=== PATIENT | female | born 1960 | race African-American/Black ===

== ENCOUNTER 2018-06-29 14:50 | Inpatient (IN) | payer MEDICARE, MEDICAID ==
[~2018-06-29] VITALS: Ht 182.9 cm; Wt 126.6 kg
[~2018-06-29 14:50] MED LIST: HYDR25TA PO; LEVO500T2 PO; LISI10TA5 PO; LURA40TA PO; METF-416 PO
[2018-06-29] MEDS ORDERED: SODIUM CHLORIDE 0.9% 1,000 ML IV ONE (15:20)
[2018-06-29] MEDS ORDERED: INSULIN REGULAR (HUMULIN R) UD 100 UNITS/ML SYR SUBCUT ONE (15:30)
[2018-06-29 15:56] LABS: BASOPHILS % 1.4 % (0.0-2.0); EOSINOPHILS % 0.7 % (0.0-5.0); HEMATOCRIT. 43.6 % (36.0-48.0); HEMOGLOBIN. 13.8 g/dL (12.0-16.0); LYMPHOCYTES % 25.1 % (20.0-50.0); MEAN CORPUSCULAR VOLUME 88.5 fL (81.0-99.0); MEAN PLATELET VOLUME 9.4 fl (7.4-10.4); MONOCYTES % 12.2 % (2.0-8.0); NEUTROPHILS % 60.6 % (40.0-76.0); PLATELET 302 x1000/uL (130-400); RED BLOOD CELL COUNT 4.92 mill/uL (4.2-5.4); RED CELL DISTRIBUTION WIDTH 16.1 % (11.6-14.6)
[2018-06-29 16:05] LABS: CHLORIDE 96 mEq/L (98-107)
[2018-06-29 16:10] LABS: CLARITY URINE CLEAR (CLEAR); COLOR URINE YELLOW (YELLOW); KETONES URINE NEGATIVE (NEGATIVE); LEUKOCYTE ESTERASE URINE NEGATIVE (NEGATIVE); NITRITE URINE NEGATIVE (NEGATIVE); OCCULT BLOOD URINE NEGATIVE (NEGATIVE); PH URINE 5.5 (4.5-8.0); PROTEIN URINE NEGATIVE (NEGATIVE); SPECIFIC GRAVITY URINE 1.032 (1.005-1.030); UROBILINOGEN URINE 0.2 E.U./dL (0.2-1.0)
[2018-06-29 16:13] LABS: BETA HYDROXYBUTYRATE 0.1 mMol/L (0.0-0.3)
[2018-06-29] MEDS ORDERED: INSULIN REGULAR (HUMULIN R) 300UNITS/3ML SUBCUT ONE (16:30)
[2018-06-29] MEDS ORDERED: INSULIN REGULAR (HUMULIN R) UD 100 UNITS/ML SYR IV ONE (17:00)
[2018-06-29] MEDS ORDERED: INSULIN REGULAR (HUMULIN R) 300UNITS/3ML IV SCH ×2 (17:45→18:30)
[2018-06-29] MEDS ORDERED: ONDANSETRON HCL 4MG/2ML INJ IV PRN (18:45)
[2018-06-29] MEDS ORDERED: DIPHENHYDRAMINE 50MG/ML VIAL IV PRN (18:45)
[2018-06-29] MEDS ORDERED: LORAZEPAM 2MG/ML CPJ IV PRN (18:45)
[2018-06-29] MEDS ORDERED: MAGNESIUM/ALUMINUM HYDROXIDE/SIMETHICONE 30ML UDC PO PRN (18:45)
[2018-06-29] MEDS ORDERED: NA PHOS,M-B/NA PHOS,DI-BA ENEMA 118ML PR PRN (18:45)
[2018-06-29] MEDS ORDERED: GUAIFENESIN 200MG/10ML SUGAR FREE UDC PO PRN (18:45)
[2018-06-29] MEDS ORDERED: ACETAMINOPHEN 325MG TABLET PO PRN (18:45)
[2018-06-29] MEDS ORDERED: CLONIDINE 0.1MG TABLET PO PRN (18:45)
[2018-06-29] MEDS ORDERED: DOCUSATE SODIUM 100MG CAPSULE PO PRN (18:45)
[2018-06-29] MEDS ORDERED: IPRATROPIUM/ALBUTEROL 0.5-3(2.5)MG/3ML NEB INH PRN (18:45)
[2018-06-29] MEDS: HYDROCODONE/ACETAMINOPHEN 5/325MG TABLET PO PRN (19:02)
[2018-06-29 21:40] VITALS: BP 130/77
[2018-06-29 22:00] VITALS: BP 130/77
[2018-06-29] MEDS ORDERED: MORPHINE SULFATE 4 MG/ML CPJ (NOT FOR IM USE) IV PRN (22:01)
[2018-06-29] MEDS ORDERED: DEXTROSE 50% WATER 50ML SYRINGE IV PRN (22:02)
[2018-06-29] MEDS: BLOOD SUGAR DIAGNOSTIC STRIP TEST SCH (22:19)
[2018-06-29] MEDS: SODIUM CHLORIDE 0.45% 1,000 ML IV SCH (22:20)
[2018-06-29] MEDS: INSULIN LISPRO 100 UNITS/ML SUBCUT SCH (22:21)
[2018-06-29 23:57] LABS: CHLORIDE 104 mEq/L (98-107)
[2018-06-30] VITALS (8 sets, daily range): BP systolic 114–173; BP diastolic 54–99
[2018-06-30] MEDS ORDERED: HYDR-4001 PO (02:14)
[2018-06-30] MEDS ORDERED: LORA-249 PO (02:14)
[2018-06-30] MEDS ORDERED: LANTUS SQ (02:14)
[2018-06-30] MEDS ORDERED: AMLO5TAB88 PO (02:14)
[2018-06-30] MEDS: HYDROCODONE/ACETAMINOPHEN 5/325MG TABLET PO PRN (04:25)
[2018-06-30] MEDS: SODIUM CHLORIDE 0.45% 1,000 ML IV SCH (05:37)
[2018-06-30] MEDS: BLOOD SUGAR DIAGNOSTIC STRIP TEST SCH ×2 (06:38→12:26)
[2018-06-30 06:53] LABS: BASOPHILS % 0.8 % (0.0-2.0); HEMATOCRIT. 36.8 % (36.0-48.0); LYMPHOCYTES % 37.7 % (20.0-50.0); MEAN CORPUSCULAR HEMOGLOBIN 28.1 pg (28.0-32.0); MEAN CORPUSCULAR VOLUME 86.4 fL (81.0-99.0); MEAN PLATELET VOLUME 7.9 fl (7.4-10.4); MONOCYTES % 12.4 % (2.0-8.0); NEUTROPHILS % 46.1 % (40.0-76.0); PLATELET 278 x1000/uL (130-400); RED BLOOD CELL COUNT 4.26 mill/uL (4.2-5.4); RED CELL DISTRIBUTION WIDTH 15.5 % (11.6-14.6)
[2018-06-30 06:54] LABS: CHLORIDE 104 mEq/L (98-107)
[2018-06-30 07:05] LABS: LDL CHOLESTEROL 72 mg/dL (5-100)
[2018-06-30 07:06] LABS: HDL CHOLESTEROL 72 mg/dL (40-59); T4 FREE 1.19 ng/dL (0.76-1.46)
[2018-06-30] MEDS: INSULIN LISPRO 100 UNITS/ML SUBCUT SCH ×2 (07:30→12:29)
[2018-06-30] MEDS ORDERED: ASPIRIN 81MG EC TABLET PO SCH (09:00)
[2018-06-30] MEDS ORDERED: ENOXAPARIN 30MG/0.3ML SYR SUBCUT SCH (09:00)
== END 2018-06-30 13:05 | disposition home or self-care (01) | DRG 637 ==
LOC: ER 14:50 → 3WST 18:11 → ENRESERV 19:58
PROVIDERS: ADMIT Internal Medicine; ATTEND Internal Medicine
DX: E11.65 Type 2 diabetes mellitus with hyperglycemia (principal); E11.00 Type 2 diabetes mellitus with hyperosmolarity without nonketotic hyperglycemic-hyperosmolar coma (NKHHC); E86.0 Dehydration; M19.90 Unspecified osteoarthritis, unspecified site; I10 Essential (primary) hypertension; F17.200 Nicotine dependence, unspecified, uncomplicated; I25.10 Atherosclerotic heart disease of native coronary artery without angina pectoris; Z79.4 Long term (current) use of insulin; Z91.14 Patient's other noncompliance with medication regimen; Z79.84 Long term (current) use of oral hypoglycemic drugs; Z79.899 Other long term (current) drug therapy; Z79.2 Long term (current) use of antibiotics
CPT/HCPCS: 36415; 71045; 80048; 80061; 82010; 82962; 83036; 83930; 84439; 84443; 84484; 93005; 94640; 96361; 96372; 96374; 99291; J1650; J1815; J2060; J2270; J7030; J7620

== ENCOUNTER 2018-11-17 18:07 | Emergency (ER) | payer MEDICARE, MEDICAID ==
[~2018-11-17] VITALS: Ht 180.3 cm; Wt 100.0 kg
[~2018-11-17 18:07] MED LIST changes: +AMLO5TAB88 PO; +HYDR-4001 PO; +LANTUS SQ; +LORA-249 PO
[2018-11-17] MEDS ORDERED: ONDANSETRON 4MG ODT PO STA (21:53)
[2018-11-17] MEDS ORDERED: CEFTRIAXONE 1 G PREMIX 50 ML IV ONE (22:00)
[2018-11-17] MEDS ORDERED: SODIUM CHLORIDE 0.9% 1000ML BAG (SEPSIS BOLUS) IV ONE (22:00)
[2018-11-17 22:44] LABS: BASOPHILS % 1.3 % (0.0-2.0); EOSINOPHILS % 2.3 % (0.0-5.0); HEMATOCRIT. 40.7 % (36.0-48.0); HEMOGLOBIN. 13.9 g/dL (12.0-16.0); LYMPHOCYTES % 32.5 % (20.0-50.0); MEAN CORPUSCULAR HEMOGLOBIN 29.7 pg (28.0-32.0); MEAN CORPUSCULAR VOLUME 86.8 fL (81.0-99.0); MONOCYTES % 8.6 % (2.0-8.0); NEUTROPHILS % 55.3 % (40.0-76.0); PLATELET 316 x1000/uL (130-400); RED BLOOD CELL COUNT 4.69 mill/uL (4.2-5.4); RED CELL DISTRIBUTION WIDTH 14.6 % (11.6-14.6)
[2018-11-17 22:49] LABS: CHLORIDE 103 mEq/L (98-107)
[2018-11-17 22:51] LABS: INR 0.9; PROTHROMBIN TIME 9.8 sec (9.6-11.0)
[2018-11-17 22:54] LABS: CLARITY URINE CLEAR (CLEAR); COLOR URINE YELLOW (YELLOW); KETONES URINE NEGATIVE (NEGATIVE); LEUKOCYTE ESTERASE URINE NEGATIVE (NEGATIVE); NITRITE URINE NEGATIVE (NEGATIVE); OCCULT BLOOD URINE NEGATIVE (NEGATIVE); PH URINE 5.5 (4.5-8.0); PROTEIN URINE 1+ (NEGATIVE); SPECIFIC GRAVITY URINE 1.041 (1.005-1.030)
[2018-11-18] MEDS ORDERED: CLONIDINE 0.1MG TABLET PO SCH (02:15)
[2018-11-18 02:20] VITALS: BP 186/99
== END 2018-11-18 02:20 | disposition home or self-care (01) ==
LOC: ER 18:07 → CANBEDREQ 11-18 02:51
DX: R50.9 Fever, unspecified (principal); E86.0 Dehydration; I10 Essential (primary) hypertension; E11.9 Type 2 diabetes mellitus without complications; M19.90 Unspecified osteoarthritis, unspecified site; Z79.84 Long term (current) use of oral hypoglycemic drugs
CPT/HCPCS: 36415; 71045; 80053; 81003; 82962; 83605; 84145; 84484; 85025; 85610; 87040; 87086; 93005; 96365; 99284; J0696; J7030; Q0162

== ENCOUNTER 2018-12-31 11:19 | Emergency (ER) | payer MEDICARE, MEDICAID ==
[~2018-12-31] VITALS: Ht 182.9 cm; Wt 127.0 kg
[2018-12-31] MEDS ORDERED: MORPHINE SULFATE 4 MG/ML CPJ (NOT FOR IM USE) IV STA (12:45)
[2018-12-31] MEDS ORDERED: ONDANSETRON HCL 4MG/2ML INJ IV STA (12:45)
[2018-12-31] MEDS ORDERED: SODIUM CHLORIDE 0.9% 1,000 ML IV ONE (12:45)
[2018-12-31 14:02] LABS: BASOPHILS % 1.2 % (0.0-2.0); EOSINOPHILS % 1.5 % (0.0-5.0); HEMATOCRIT. 42.9 % (36.0-48.0); HEMOGLOBIN. 14.4 g/dL (12.0-16.0); LYMPHOCYTES % 33.3 % (20.0-50.0); MEAN CORPUSCULAR HEMOGLOBIN 28.7 pg (28.0-32.0); MEAN CORPUSCULAR VOLUME 85.7 fL (81.0-99.0); MEAN PLATELET VOLUME 8.5 fl (7.4-10.4); MONOCYTES % 7.6 % (2.0-8.0); NEUTROPHILS % 56.4 % (40.0-76.0); PLATELET 284 x1000/uL (130-400); RED BLOOD CELL COUNT 5.01 mill/uL (4.2-5.4); RED CELL DISTRIBUTION WIDTH 14.3 % (11.6-14.6)
[2018-12-31 14:04] LABS: CHLORIDE 100 mEq/L (98-107)
[2018-12-31 14:07] LABS: INR 0.9; PARTIAL THROMBOPLASTIN TIME 24.3 sec (23.4-31.0); PROTHROMBIN TIME 9.6 sec (9.6-11.0)
[2018-12-31 14:10] LABS: BETA HYDROXYBUTYRATE 0.3 mMol/L (0.0-0.3)
[2018-12-31] MEDS ORDERED: INSULIN REGULAR (HUMULIN R) 300UNITS/3ML IV ONE (14:45)
[2018-12-31 15:20] LABS: CLARITY URINE CLEAR (CLEAR); COLOR URINE YELLOW (YELLOW); KETONES URINE NEGATIVE (NEGATIVE); LEUKOCYTE ESTERASE URINE NEGATIVE (NEGATIVE); NITRITE URINE NEGATIVE (NEGATIVE); OCCULT BLOOD URINE NEGATIVE (NEGATIVE); PH URINE 5.5 (4.5-8.0); PROTEIN URINE NEGATIVE (NEGATIVE); SPECIFIC GRAVITY URINE 1.034 (1.005-1.030); UROBILINOGEN URINE 0.2 E.U./dL (0.2-1.0)
[2018-12-31 17:00] VITALS: BP 128/72
== END 2018-12-31 17:40 | disposition home or self-care (01) ==
LOC: ER 11:19
DX: R51 Headache (principal); R42 Dizziness and giddiness; R53.1 Weakness; E11.9 Type 2 diabetes mellitus without complications; I10 Essential (primary) hypertension; Z79.899 Other long term (current) drug therapy
CPT/HCPCS: 36415; 70450; 71045; 80053; 81003; 82010; 83690; 83880; 84484; 85025; 85610; 85730; 93005; 96361; 96374; 96375; 99284; J1815; J2270; J2405; J7030

== ENCOUNTER → 2022-09-02 | Outpatient (CLI) | payer MEDICARE, MEDICAID ==
[~2022-09-02] MED LIST changes: +ALBU6.7H15 INH; +BARIUM SULFATE 176 GM SUSP.RECON ONE; +CEPH500T MT; +EZ-HD SUSPENSION(BARIUM SULFATE 340GM) PO ONE; +FLUO20CA33 PO; +FLUT1DIS2 INH; +GABA-532 PO; -HYDR-4001 PO; -HYDR25TA PO; +INSU100C6 SQ; -LEVO500T2 PO; +LIDO700A30 TOP; -LISI10TA5 PO; -LORA-249 PO; -LURA40TA PO; +METF-414 PO; -METF-416 PO; +QUET400T PO; +RIVA20TA PO; +SULF1TAB48 MT; +TRAM50TA3 PO
== END | disposition home or self-care (01) ==
LOC: RAD 08:36
PROVIDERS: ATTEND Internal Medicine Gastroenterology
DX: K22.89 Other specified disease of esophagus (principal); R13.10 Dysphagia, unspecified
CPT/HCPCS: 74220

== ENCOUNTER 2022-12-23 15:16 | Inpatient (IN) | payer MEDICARE, MEDICAID ==
[~2022-12-23] VITALS: Ht 182.9 cm; Wt 129.3 kg
[~2022-12-23 15:16] MED LIST changes: -BARIUM SULFATE 176 GM SUSP.RECON ONE; -EZ-HD SUSPENSION(BARIUM SULFATE 340GM) PO ONE
[2022-12-23 18:16] LABS: BASOPHILS % 0.8 % (0.0-2.0); EOSINOPHILS % 1.8 % (0.0-5.0); HEMATOCRIT. 39.1 % (36.0-48.0); HEMOGLOBIN. 12.9 g/dL (12.0-16.0); LYMPHOCYTES % 41.3 % (20.0-50.0); MEAN CORPUSCULAR VOLUME 87.6 fL (81.0-99.0); MONOCYTES % 8.7 % (2.0-8.0); NEUTROPHILS % 47.4 % (40.0-76.0); PLATELET 302 x1000/uL (130-400); RED BLOOD CELL COUNT 4.46 mill/uL (4.2-5.4); RED CELL DISTRIBUTION WIDTH 14.7 % (11.6-14.6)
[2022-12-23 18:21] LABS: CLARITY URINE CLEAR (CLEAR); COLOR URINE YELLOW (YELLOW); KETONES URINE NEGATIVE (NEGATIVE); LEUKOCYTE ESTERASE URINE NEGATIVE (NEGATIVE); NITRITE URINE NEGATIVE (NEGATIVE); OCCULT BLOOD URINE NEGATIVE (NEGATIVE); PH URINE 5.5 (4.5-8.0); PROTEIN URINE 1+ (NEGATIVE); SPECIFIC GRAVITY URINE 1.028 (1.005-1.030); UROBILINOGEN URINE 0.2 E.U./dL (0.2-1.0)
[2022-12-23 18:25] LABS: CHLORIDE 102 mEq/L (98-107)
[2022-12-23 18:39] LABS: BETA HYDROXYBUTYRATE 0.1 mMol/L (0.0-0.3)
[2022-12-23] MEDS: SODIUM CHLORIDE 0.9% 1,000 ML IV ONE (22:07)
[2022-12-23] MEDS ORDERED: INSULIN REGULAR (HUMULIN R) 300UNITS/3ML VIAL IV ONE (22:30)
[2022-12-24] MEDS ORDERED: INSULIN REGULAR (HUMULIN R) 300UNITS/3ML VIAL IV NR (00:30)
[2022-12-24] MEDS: SODIUM CHLORIDE 0.9% 1,000 ML IV ONE (00:31)
[2022-12-24 02:30] VITALS: BP 152/77; PULSE 108; RESP 18; TEMP 98.1
[2022-12-24] MEDS ORDERED: QUET200T30 PO (03:22)
[2022-12-24] MEDS ORDERED: LOSARTAN PO (03:23)
[2022-12-24 04:00] VITALS: BP 150/81; PULSE 92; RESP 20; TEMP 98.1
[2022-12-24] MEDS ORDERED: DIPHENOXYLATE/ATROPINE 2.5/0.025MG TABLET PO PRN (04:15)
[2022-12-24] MEDS ORDERED: DEXTROSE 50% WATER 50ML SYRINGE IV PRN (04:15)
[2022-12-24 05:40] LABS: BASOPHILS % 0.6 % (0.0-2.0); EOSINOPHILS % 2.7 % (0.0-5.0); HEMATOCRIT. 39.2 % (36.0-48.0); HEMOGLOBIN. 12.8 g/dL (12.0-16.0); LYMPHOCYTES % 40.7 % (20.0-50.0); MEAN CORPUSCULAR HEMOGLOBIN 28.6 pg (28.0-32.0); MEAN CORPUSCULAR VOLUME 87.8 fL (81.0-99.0); MONOCYTES % 9.1 % (2.0-8.0); NEUTROPHILS % 46.9 % (40.0-76.0); PLATELET 296 x1000/uL (130-400); RED BLOOD CELL COUNT 4.46 mill/uL (4.2-5.4); RED CELL DISTRIBUTION WIDTH 14.6 % (11.6-14.6)
[2022-12-24] MEDS: ENOXAPARIN 30MG/0.3ML SYR SUBCUT SCH ×2 (05:55→17:12)
[2022-12-24] MEDS ORDERED: INSULIN LISPRO 100 UNITS/ML SUBCUT NR (06:00)
[2022-12-24] MEDS: INSULIN LISPRO 100 UNITS/ML SUBCUT SCH ×5 (06:29→21:24)
[2022-12-24] MEDS: BLOOD SUGAR DIAGNOSTIC STRIP TEST SCH ×4 (06:29→21:22)
[2022-12-24] MEDS: HYDROCODONE/ACETAMINOPHEN 5/325MG TABLET PO PRN ×2 (06:34→15:23)
[2022-12-24 07:48] LABS: CHLORIDE 104 mEq/L (98-107)
[2022-12-24 08:00] VITALS: BP 136/86; PULSE 104; RESP 18; TEMP 97.7
[2022-12-24 08:06] LABS: HDL CHOLESTEROL 93 mg/dL (40-59); LDL CHOLESTEROL 91 mg/dL (5-100)
[2022-12-24] MEDS: FLUOXETINE HCL 20MG CAPSULE PO SCH (08:51)
[2022-12-24] MEDS: LOSARTAN POTASSIUM 25 MG TABLET PO SCH (08:52)
[2022-12-24] MEDS: NICOTINE 14MG PATCH TD SCH (08:54)
[2022-12-24] MEDS: INSULIN GLARGINE 100 UNITS/ML SUBCUT SCH ×2 (10:29→21:24)
[2022-12-24 12:00] VITALS: BP 126/93; PULSE 80; RESP 18; TEMP 97.7
[2022-12-24] MEDS: SODIUM CHLORIDE 0.9% 1,000 ML IV SCH (13:31)
[2022-12-24 16:00] VITALS: BP 139/84; PULSE 79; RESP 18; TEMP 97.5
[2022-12-24] MEDS: ACETAMINOPHEN 325MG TABLET PO PRN (18:58)
[2022-12-24 20:00] VITALS: BP 121/62; PULSE 78; RESP 20; TEMP 96.9
[2022-12-24] MEDS: QUETIAPINE FUMARATE 200MG TABLET PO SCH (21:22)
[2022-12-24] MEDS: GABAPENTIN 300MG CAPSULE PO SCH (21:22)
[2022-12-25] VITALS: BP 176/97; PULSE 99; RESP 20; TEMP 98.2
[2022-12-25 04:00] VITALS: BP 153/95; PULSE 85; RESP 20; TEMP 97
[2022-12-25] MEDS: ENOXAPARIN 30MG/0.3ML SYR SUBCUT SCH ×2 (06:36→16:30)
[2022-12-25] MEDS: BLOOD SUGAR DIAGNOSTIC STRIP TEST SCH ×4 (06:38→20:44)
[2022-12-25] MEDS: INSULIN LISPRO 100 UNITS/ML SUBCUT SCH ×4 (06:38→21:35)
[2022-12-25 06:58] LABS: VITAMIN B12 SERUM 1456 pg/mL (211-911)
[2022-12-25 08:00] VITALS: BP 120/63; PULSE 86; RESP 18; TEMP 97.5
[2022-12-25] MEDS: SODIUM CHLORIDE 0.9% 1,000 ML IV SCH ×2 (08:45→11:05)
[2022-12-25] MEDS: LOSARTAN POTASSIUM 25 MG TABLET PO SCH (08:46)
[2022-12-25] MEDS: NICOTINE 14MG PATCH TD SCH (08:46)
[2022-12-25] MEDS: FLUOXETINE HCL 20MG CAPSULE PO SCH (08:46)
[2022-12-25] MEDS: ACETAMINOPHEN 325MG TABLET PO PRN (10:20)
[2022-12-25] MEDS: INSULIN GLARGINE 100 UNITS/ML SUBCUT SCH ×2 (10:21→21:34)
[2022-12-25] MEDS: AMLODIPINE 5MG TABLET PO SCH ×2 (11:05→16:29)
[2022-12-25] MEDS: HYDROCODONE/ACETAMINOPHEN 5/325MG TABLET PO PRN ×3 (11:29→21:29)
[2022-12-25 12:00] VITALS: BP 132/87; PULSE 87; RESP 20; TEMP 97.7
[2022-12-25 16:00] VITALS: BP_SYST 126; BP_SYST 129; BP_SYST 142; BP_DIAS 69; BP_DIAS 75; BP_DIAS 78; PULSE 87; RESP 18; TEMP 99.7
[2022-12-25] MEDS ORDERED: NALOXONE HCL 0.4MG/ML VIAL IV PRN (16:30)
[2022-12-25 20:00] VITALS: BP 145/82; PULSE 94; RESP 18; TEMP 97.7
[2022-12-25] MEDS: GABAPENTIN 300MG CAPSULE PO SCH (21:29)
[2022-12-25] MEDS: METOPROLOL TARTRATE 25MG TABLET PO SCH (21:30)
[2022-12-26] VITALS (8 sets, daily range): BP systolic 116–146; BP diastolic 56–90; PULSE 61–90; RESP 18–20; TEMP 97–98.4
[2022-12-26 06:12] LABS: BASOPHILS % 0.9 % (0.0-2.0); EOSINOPHILS % 3.1 % (0.0-5.0); HEMATOCRIT. 38.8 % (36.0-48.0); HEMOGLOBIN. 12.6 g/dL (12.0-16.0); LYMPHOCYTES % 41.6 % (20.0-50.0); MEAN CORPUSCULAR HEMOGLOBIN 28.7 pg (28.0-32.0); MEAN CORPUSCULAR VOLUME 88.5 fL (81.0-99.0); MEAN PLATELET VOLUME 8.9 fl (7.4-10.4); MONOCYTES % 10.7 % (2.0-8.0); NEUTROPHILS % 43.7 % (40.0-76.0); PLATELET 202 x1000/uL (130-400); RED BLOOD CELL COUNT 4.38 mill/uL (4.2-5.4); RED CELL DISTRIBUTION WIDTH 14.7 % (11.6-14.6)
[2022-12-26] MEDS: BLOOD SUGAR DIAGNOSTIC STRIP TEST SCH ×4 (06:13→21:43)
[2022-12-26] MEDS: ENOXAPARIN 30MG/0.3ML SYR SUBCUT SCH ×2 (06:13→17:48)
[2022-12-26 06:18] LABS: CHLORIDE 109 mEq/L (98-107)
[2022-12-26] MEDS: INSULIN LISPRO 100 UNITS/ML SUBCUT SCH ×4 (06:31→21:45)
[2022-12-26] MEDS ORDERED: IOHEXOL-350 100 ML BOTTLE ONE (08:17)
[2022-12-26] MEDS: LOSARTAN POTASSIUM 25 MG TABLET PO SCH (08:45)
[2022-12-26] MEDS: METOPROLOL TARTRATE 25MG TABLET PO SCH ×2 (08:45→21:43)
[2022-12-26] MEDS: FLUOXETINE HCL 20MG CAPSULE PO SCH (08:46)
[2022-12-26] MEDS: AMLODIPINE 5MG TABLET PO SCH ×2 (08:46→17:47)
[2022-12-26] MEDS: NICOTINE 14MG PATCH TD SCH (08:47)
[2022-12-26] MEDS ORDERED: NICO-786 TD (09:30)
[2022-12-26] MEDS ORDERED: METO25TA6 PO (09:30)
[2022-12-26] MEDS ORDERED: NICO-681 TP (09:30)
[2022-12-26] MEDS ORDERED: LOSA25TA3 PO (09:30)
[2022-12-26] MEDS ORDERED: AMLO5TAB88 PO (09:30)
[2022-12-26] MEDS: OXYCODONE HCL/ACETAMINOPHEN 5/325MG TABLET PO PRN ×2 (10:00→17:47)
[2022-12-26] MEDS: INSULIN GLARGINE 100 UNITS/ML SUBCUT SCH ×2 (10:19→21:46)
[2022-12-26] MEDS ORDERED: METOPROLOL TARTRATE 5MG/5ML VIAL IV NR (12:30)
[2022-12-26] MEDS ORDERED: NITROGLYCERIN SPRAY/4.9GM CAN TL ONE (13:45)
[2022-12-26] MEDS: GABAPENTIN 300MG CAPSULE PO SCH (21:41)
[2022-12-26] MEDS: QUETIAPINE FUMARATE 200MG TABLET PO SCH (21:42)
[2022-12-27] MEDS: OXYCODONE HCL/ACETAMINOPHEN 5/325MG TABLET PO PRN (00:29)
[2022-12-27] MEDS: SODIUM CHLORIDE 0.9% 1,000 ML IV SCH (00:45)
[2022-12-27 01:21] VITALS: BP 130/80; PULSE 92; RESP 20; TEMP 97
[2022-12-27 04:00] VITALS: BP 112/80; PULSE 78; RESP 18; TEMP 97.8
[2022-12-27] MEDS: ENOXAPARIN 30MG/0.3ML SYR SUBCUT SCH (06:30)
[2022-12-27] MEDS: INSULIN LISPRO 100 UNITS/ML SUBCUT SCH (06:32)
[2022-12-27] MEDS: BLOOD SUGAR DIAGNOSTIC STRIP TEST SCH (06:33)
[2022-12-27 08:00] VITALS: BP 112/61; PULSE 67; RESP 20; TEMP 98
[2022-12-27] MEDS: METOPROLOL TARTRATE 25MG TABLET PO SCH (08:40)
[2022-12-27] MEDS: AMLODIPINE 5MG TABLET PO SCH (08:40)
[2022-12-27] MEDS: FLUOXETINE HCL 20MG CAPSULE PO SCH (08:40)
[2022-12-27] MEDS: NICOTINE 14MG PATCH TD SCH (08:40)
[2022-12-27] MEDS: LOSARTAN POTASSIUM 25 MG TABLET PO SCH (08:40)
[2022-12-27 09:00] VITALS: BP 112/61; PULSE 67; TEMP 98; O2SAT 100
[2022-12-27] MEDS: INSULIN GLARGINE 100 UNITS/ML SUBCUT SCH (10:50)
== END 2022-12-27 12:00 | disposition home health service (06) | DRG 638 ==
LOC: ER 15:34 → MICUSO 22:28 → 8WST 12-24 03:09
PROVIDERS: ADMIT Family Medicine Adult Medicine; ATTEND Family Medicine Adult Medicine
PROC: 4A00X4Z Measurement of Central Nervous Electrical Activity, External Approach (ICD-10-PCS; principal; 2022-12-26)
DX: E11.65 Type 2 diabetes mellitus with hyperglycemia (principal); I42.9 Cardiomyopathy, unspecified; G90.8 Other disorders of autonomic nervous system; I10 Essential (primary) hypertension; J44.9 Chronic obstructive pulmonary disease, unspecified; E11.21 Type 2 diabetes mellitus with diabetic nephropathy; E11.42 Type 2 diabetes mellitus with diabetic polyneuropathy; E78.5 Hyperlipidemia, unspecified; I95.1 Orthostatic hypotension; R29.6 Repeated falls; E66.01 Morbid (severe) obesity due to excess calories; M19.90 Unspecified osteoarthritis, unspecified site; Z96.659 Presence of unspecified artificial knee joint; F17.200 Nicotine dependence, unspecified, uncomplicated; Z68.38 Body mass index [BMI] 38.0-38.9, adult; Z82.49 Family history of ischemic heart disease and other diseases of the circulatory system; Z79.899 Other long term (current) drug therapy
CPT/HCPCS: 36415; 71045; 73562; 75571; 80048; 80053; 80061; 81003; 82010; 82607; 82962; 83036; 83735; 84443; 84484; 85025; 93005; 93306; 93880; 95816; 97162; 99285; J1650; J1815; J3490; J7030; Q9967